=== PATIENT | female | born 1990 | race Native Hawaiian/Other Pacific Islander ===

== ENCOUNTER 2021-01-22 14:35 | Emergency (ER) | payer OTHER ==
[~2021-01-22] VITALS: Ht 157.5 cm; Wt 72.6 kg
[2021-01-22 15:08] VITALS: BP 133/89; TEMP 97.2
[2021-01-22 15:58] LABS: PLATELET COUNT 333 K/uL (152-353)
[2021-01-22 16:07] LABS: POTASSIUM 3.6 mmol/L (3.6-5.2)
== END 2021-01-22 17:05 | disposition home or self-care (01) ==
LOC: ED 14:35
PROVIDERS: Emergency Medicine Emergency Medical Services
DX: R60.0 Localized edema (principal)
CPT/HCPCS: 80048; 80307; 81000; 83735; 84443; 85027; 99283